=== PATIENT | female | born 1960 | race Asian ===

== ENCOUNTER → 2022-03-12 | Day surgery (SDC) | payer MEDICARE, OTHER ==
[2022-03-11 11:19] LABS: COVID AG,FIA SOURCE NASAL SWAB
[~2022-03-12] VITALS: Ht 152.4 cm; Wt 118.2 kg
[~2022-03-12] MED LIST: AMLO-257 PO; AMLO-258 PO; ANUSHCS PR; ASPI-1450 PO; ATOR10TA PO; BENZ-70 PO; BUDE3CAP18 PO; CALC260T16 PO; CLON0.1T2 PO; FLUO-341 PO; GABA-1216 PO; HYDR25TA2 PO; LIDOCAINE 2% 5 ML JELLY TP ONE; LORA10TA7 PO; MESA400C2 PO; METF-1185 PO; NAPR-1025 PO; OMEP10 PO; OXYGEN THERAPY IH SCH; POLY17PO47 PO; PRED-554 PO; PROPOFOL 1% 20 ML VIAL IVP ONE; SODIUM CHLORIDE 0.9% 1,000 ML IV ONE; SODIUM CHLORIDE 0.9% 1,000 ML ONE
[2022-03-12 08:21] LABS: GLUCOMETER DEV NAME(LOC) SDS.; GLUCOSE,POINT OF CARE 116 MG/DL (70-110)
== END | disposition still patient (30) ==
LOC: SURGERY 07:25
PROVIDERS: ATTEND Specialist
DX: K29.70 Gastritis, unspecified, without bleeding (principal); E11.9 Type 2 diabetes mellitus without complications; F32.9 Major depressive disorder, single episode, unspecified; I10 Essential (primary) hypertension; Z98.890 Other specified postprocedural states; Z88.0 Allergy status to penicillin; Z91.040 Latex allergy status; Z79.899 Other long term (current) drug therapy
CPT/HCPCS: 87426; 82962; C9803; C1769; J2704; J7030

== ENCOUNTER → 2023-03-31 | Outpatient (CLI) | payer MEDICARE, OTHER ==
[~2023-03-31] VITALS: Ht 149.9 cm; Wt 108.0 kg
[~2023-03-31] MED LIST changes: +BENZ-227 PO; -BENZ-70 PO; +FLUO20CA36 PO; -LIDOCAINE 2% 5 ML JELLY TP ONE; -OXYGEN THERAPY IH SCH; -PROPOFOL 1% 20 ML VIAL IVP ONE; -SODIUM CHLORIDE 0.9% 1,000 ML IV ONE; -SODIUM CHLORIDE 0.9% 1,000 ML ONE
[2023-03-31 15:13] VITALS: BP 158/65; PULSE 62; RESP 18; TEMP 98.7; O2SAT 99
== END | disposition home or self-care (01) ==
LOC: SRCNTR 14:43
PROVIDERS: ATTEND Internal Medicine
DX: R01.1 Cardiac murmur, unspecified (principal); I10 Essential (primary) hypertension; E11.9 Type 2 diabetes mellitus without complications; M19.90 Unspecified osteoarthritis, unspecified site; F32.A Depression, unspecified; K52.9 Noninfective gastroenteritis and colitis, unspecified; Z87.891 Personal history of nicotine dependence
CPT/HCPCS: G0463

== ENCOUNTER → 2023-04-08 | Outpatient (CLI) | payer MEDICARE, OTHER ==
[~2023-04-08] MED LIST changes: -AMLO-257 PO; -BENZ-227 PO; -FLUO-341 PO; -PRED-554 PO
== END | disposition home or self-care (01) ==
LOC: RADPV 13:03
PROVIDERS: ATTEND Internal Medicine
DX: I08.3 Combined rheumatic disorders of mitral, aortic and tricuspid valves (principal); R01.1 Cardiac murmur, unspecified
CPT/HCPCS: 93306

== ENCOUNTER → 2023-04-14 | Outpatient (CLI) | payer MEDICARE, OTHER | END | disposition home or self-care (01) | LOC: SRCNTR 14:04 | PROVIDERS: ATTEND Internal Medicine | DX: R01.1 Cardiac murmur, unspecified (principal); I35.0 Nonrheumatic aortic (valve) stenosis; I10 Essential (primary) hypertension; E11.9 Type 2 diabetes mellitus without complications; M19.90 Unspecified osteoarthritis, unspecified site; F32.A Depression, unspecified; Z87.891 Personal history of nicotine dependence; Z87.11 Personal history of peptic ulcer disease; Z79.82 Long term (current) use of aspirin; Z79.84 Long term (current) use of oral hypoglycemic drugs; Z88.0 Allergy status to penicillin; Z88.8 Allergy status to other drugs, medicaments and biological substances | CPT/HCPCS: Q3014 ==